=== PATIENT | male | born 1985 | race Two or more races ===

== ENCOUNTER 2022-03-05 07:52 | Emergency (ER) | payer BC ==
[~2022-03-05] VITALS: Ht 177.8 cm; Wt 97.5 kg
== END 2022-03-05 12:28 | disposition home or self-care (01) ==
LOC: ER 07:52
DX: R10.31 Right lower quadrant pain (principal); K57.30 Diverticulosis of large intestine without perforation or abscess without bleeding; N32.3 Diverticulum of bladder